=== PATIENT | male | born 1975 | race Caucasian/White ===

== ENCOUNTER 2019-10-01 09:00 | Emergency (ER) | payer BC, OTHER | END 2019-10-01 09:56 | disposition home or self-care (01) | LOC: MADERS 09:00 | DX: S00.01XA Abrasion of scalp, initial encounter (principal); L08.9 Local infection of the skin and subcutaneous tissue, unspecified; F17.290 Nicotine dependence, other tobacco product, uncomplicated | CPT/HCPCS: 99283 ==

== ENCOUNTER 2020-12-31 05:42 | Emergency (ER) | payer SELFPAY ==
[2020-12-31] MEDS ORDERED: Morphine 4 MG/ML VIAL ONE (06:39)
[2020-12-31] MEDS ORDERED: Ketorolac Tromethamine 30 MG/ML VIAL ONE (06:39)
[2020-12-31] MEDS ORDERED: Vancomycin 1.5 GRAM/300 ML BAG ONE (06:40)
[2020-12-31 06:58] LABS: #Basophils 0.1 thou/uL (0.0-0.2); #Eosinphils 0.3 thou/uL (0.0-0.7); #Lymphocytes 1.4 thou/uL (1.20-3.40); #Monocytes 0.9 thou/uL (0.11-0.59); #Neutrophils 12.2 thou/uL (1.40-6.50); %Basophils 0.9 % (0.0-1.0); %Eosinophils 2.1 % (0.0-10.0); %Lymphocytes 9.2 % (21.0-51.0); %Monocytes 5.9 % (0.0-10.0); %Neutrophils 81.9 % (42.0-75.0); Hemoglobin 16.6 g/dL (14.0-18.0); Mean Corpuscular Hemoglobin 30.6 pg (27.0-31.0); Mean Corpuscular Volume 92.7 fL (78.0-98.0); Mean Platelet Volume 8.4 fL (7.4-10.4); Platelet Count 295 thou/uL (130-400); RBC Distribution Width 10.7 % (11.5-14.5); Red Blood Cell (RBC) Count 5.41 mill/uL (4.70-6.10); White Blood Cell (WBC) Count 14.9 thou/uL (4.8-10.8)
[2020-12-31 07:15] LABS: ALT (SGPT) 30 U/L (8-55); AST (SGOT) 20 U/L (5-34); Alkaline Phosphatase 100 U/L (40-110); Anion Gap 19 mmol/L (10-20); BUN (Urea Nitrogen) 13 mg/dL (8.9-20.6); Bilirubin, Total 0.4 mg/dL (0.2-1.2); Calc. Creatinine Clearance 0 mL/min (70-130); Calcium 9.5 mg/dL (7.8-10.44); Carbon Dioxide 24 mmol/L (22-29); Chloride 101 mmol/L (98-107); Globulin 3.2 g/dL (2.4-3.5); Glucose 162 mg/dL (70-105); Potassium 3.6 mmol/L (3.5-5.1); Protein, Total 7.2 g/dL (6.0-8.3); Sodium 140 mmol/L (136-145)
[2020-12-31] MEDS ORDERED: Cefepime 2 GM VIAL ONE (10:45)
[2020-12-31] MEDS ORDERED: Sodium Chloride 0.9% 100 ML ONE (10:46)
== END 2020-12-31 12:11 | disposition short-term general hospital (02) ==
LOC: MADERS 05:42
DX: S63.652A Sprain of metacarpophalangeal joint of right middle finger, initial encounter (principal); F17.210 Nicotine dependence, cigarettes, uncomplicated; F17.290 Nicotine dependence, other tobacco product, uncomplicated; W45.8XXA Other foreign body or object entering through skin, initial encounter
CPT/HCPCS: 80053; 83605; 85025; 86140; 87040; 96365; 96366; 96367; 96375; J0692; J1885; J2270; J3370; J3490

== ENCOUNTER 2022-08-28 16:18 | Emergency (ER) | payer SELFPAY ==
[2022-08-28 16:47] LABS: Bilirubin Negative (Negative); Blood, Urine Negative (Negative); Clarity Clear (Clear); Glucose, Urine (Dipstick) Negative (Negative); Ketone, Urine Negative (Negative); Leukocyte Negative (Negative); Nitrite Negative (Negative); Protein, Urine (Dipstick) Negative (Neg-Trace); Urobilinogen 0.2 mg/dL (Less than 2)
[2022-08-28] MEDS ORDERED: Ketorolac Tromethamine 30 MG/ML VIAL ONE (17:04)
== END 2022-08-28 17:42 | disposition home or self-care (01) ==
LOC: MADERS 16:18
DX: N20.2 Calculus of kidney with calculus of ureter (principal); F17.210 Nicotine dependence, cigarettes, uncomplicated
CPT/HCPCS: 81003; 96372; 99284; J1885